=== PATIENT | male | born 1935 | race Caucasian/White ===

== ENCOUNTER 2020-10-06 10:06 | Emergency (ER) | payer OTHER, MEDICAID ==
[~2020-10-06] VITALS: Ht 162.6 cm; Wt 82.1 kg
[2020-10-06 10:13] VITALS: BP 180/80
--- NOTE | 2020-10-06 11:17 | NUR ---
PT AMBULATED TO BED 5 WITH FAMILY.
--- NOTE | 2020-10-06 11:20 | NUR ---
84 YO MALE BIBS C/O VIRY LOWER EXT SWELLING +NUMBNESS +DIZZINESS +FAINT AT TIMES (S/S X 1 MONTH). SWELLING TO VIRY FEET/ANKLES/LOWER LEGS 2+ PITTING EDEMA. SENSATION INTACT TO EXT. ACTIVE ROM. DENIES CHEST PAIN, SOB, BLURRED VISION, N/V/D. PT STATES HE LOSES HIS BALANCE AT TIMES AND FEELS FAINT BUT HAS NOT FALLEN. PT STATES HE BELIEVES THIS IS D/T HIS MEDICATIONS, HE DOES NOT TAKE BP MEDICATIONS ORDERED. VS BP 170/76 HR 66 RR 24 02 99%. PT IS A&OX4, RR EVEN AND UNLABORED, PT CONNECTED TO MONITOR, SIDE RAILS UP, BED IN LOWEST POSITON FOR SAFETY. NKDA PMH: HTN MEDS: ASPIRIN 81MG PO DAILY, AMLODOPINE 10MG PO DAILY, BENAZAPRIL 40MG PO DAILY, VITAMIN D2 1.25MG WEEKLY.
--- NOTE | 2020-10-06 11:28 | NUR ---
EMT AT BEDSIDE FOR EKG
--- NOTE | 2020-10-06 11:32 | NUR ---
BASKET MENDER AT BEDSIDE FOR BLOOD DRAW.
[2020-10-06 11:41] LABS: BASOPHILS % (AUTO) 0.7 % (0.0-2.0); EOSINOPHILS # (AUTO) 0.2 K/uL (0-0.4); EOSINOPHILS % (AUTO) 3.9 % (0.0-4.0); HEMATOCRIT 40.6 % (36-52); HEMOGLOBIN 13.7 g/dL (12.0-18.0); LYMPHOCYTES # (AUTO) 1.7 K/uL (2.0-11.5); LYMPHOCYTES % (AUTO) 32.6 % (20.5-51.1); MEAN CORPUSCULAR HEMOGLOBIN 33 pg (27-31); MEAN CORPUSCULAR HGB CONC 34 g/dL (33-37); MEAN CORPUSCULAR VOLUME 97.6 fL (80-94); MONOCYTES # (AUTO) 0.4 K/uL (0.8-1.0); MONOCYTES % (AUTO) 8.8 % (1.7-9.3); NEUTROPHILS # (AUTO) 2.7 K/uL (1.8-7.7); PLATELET COUNT (AUTO) 191 K/uL (140-450); RED BLOOD CELL COUNT(AUTO) 4.16 MIL/uL (4.20-6.10); RED CELL DISTRIBUTION WIDTH 13.7 % (11.6-13.7); WHITE BLOOD COUNT (AUTO) 5.1 K/uL (4.8-10.8)
--- NOTE | 2020-10-06 11:41 | NUR ---
PT TRANSPORTED TO [facility] VIA W/C.
--- NOTE | 2020-10-06 11:48 | NUR ---
PT RETURNED FROM XRAY VIA W/C.
[2020-10-06 11:54] LABS: ALBUMIN 3.9 g/dL (3.4-5.0); ANION GAP 11.6 (8-16); ASPARTATE AMINOTRANSFERASE 23 U/L (15-37); CARBON DIOXIDE 28.3 mmol/L (21-32); CHLORIDE 104 mmol/L (98-107); GLUCOSE 109 mg/dL (74-106); POTASSIUM 3.9 mmol/L (3.5-5.1); SODIUM SERUM 140 mmol/L (136-145); TOTAL BILIRUBIN 0.5 mg/dL (0.0-1.0); UREA NITROGEN, BLOOD 19 mg/dL (7-18)
--- NOTE | 2020-10-06 12:32 | NUR ---
DR CARLISLE AT BEDSIDE EVALUATING PT.
[2020-10-06] MEDS ORDERED: FURO-572 PO (13:00)
[2020-10-06 13:06] VITALS: BP 166/66
--- NOTE | 2020-10-06 13:06 | NUR ---
Patient discharged with v/s stable. Written and verbal after care instructions FOR EDEMA given and explained. Patient alert, oriented and verbalized understanding of instructions. Ambulatory with steady gait. All questions addressed prior to discharge. ID band removed. Patient advised to follow up with PMD. Rx of LASIX 20MG given. Patient educated on indication of medication including possible reaction and side effects. Opportunity to ask questions provided and answered.
== END 2020-10-06 13:06 | disposition home or self-care (01) ==
LOC: MED 10:06
DX: R60.9 Edema, unspecified (principal); I10 Essential (primary) hypertension; Z79.899 Other long term (current) drug therapy
CPT/HCPCS: 36415; 71045; 80053; 83880; 84484; 85025; 93005; 99285

== ENCOUNTER 2021-02-09 16:25 | Emergency (ER) | payer OTHER, MEDICAID ==
[~2021-02-09] VITALS: Ht 162.6 cm; Wt 79.4 kg
[~2021-02-09 16:25] MED LIST: FURO-572 PO
[2021-02-09 16:28] VITALS: BP 214/107
--- NOTE | 2021-02-09 16:37 | NUR ---
PATIENT AMBULATED TO BED 6.
--- NOTE | 2021-02-09 16:37 | NUR ---
Adrian lewis in [facility] - 02/09/21 at 1647 by [email or web address] PATIENT AMBULATED TO BED11.
--- NOTE | 2021-02-09 16:55 | NUR ---
85 y/o male BIB son for dizzy spells and high blood pressure at home (unknown). Pt AOX4, able to make needs known. No stroke symptoms noted. Denies N/V/D at this time. Denies CP/abd pain. No vision changes at this time. B/P 176/81 at this time. Denies DE LA O PmHx: HTN Home meds: Unknown, does not take them. Allergies: Denies
--- NOTE | 2021-02-09 17:41 | NUR ---
Blood drawn and walked down to lab by Pavel.
--- NOTE | 2021-02-09 17:42 | NUR ---
Dr Anderson at bedside to assess pt
[2021-02-09 18:00] LABS: BASOPHILS % (AUTO) 0.4 % (0.0-2.0); EOSINOPHILS # (AUTO) 0.1 K/uL (0-0.4); EOSINOPHILS % (AUTO) 0.8 % (0.0-4.0); HEMATOCRIT 43.6 % (36-52); HEMOGLOBIN 14.7 g/dL (12.0-18.0); LYMPHOCYTES # (AUTO) 1.2 K/uL (2.0-11.5); MEAN CORPUSCULAR HEMOGLOBIN 31 pg (27-31); MEAN CORPUSCULAR HGB CONC 34 g/dL (33-37); MEAN CORPUSCULAR VOLUME 92.9 fL (80-94); MONOCYTES # (AUTO) 0.9 K/uL (0.8-1.0); MONOCYTES % (AUTO) 9.8 % (1.7-9.3); NEUTROPHILS # (AUTO) 7.1 K/uL (1.8-7.7); PLATELET COUNT (AUTO) 187 K/uL (140-450); RED CELL DISTRIBUTION WIDTH 14.6 % (11.6-13.7); WHITE BLOOD COUNT (AUTO) 9.3 K/uL (4.8-10.8)
--- NOTE | 2021-02-09 18:24 | NUR ---
Urine collected and walked down to lab. Dip results shown to ERMD
[2021-02-09 18:28] LABS: ALBUMIN 3.8 g/dL (3.4-5.0); ANION GAP 14.5 (8-16); ASPARTATE AMINOTRANSFERASE 20 U/L (15-37); CARBON DIOXIDE 25.3 mmol/L (21-32); CHLORIDE 105 mmol/L (98-107); CREATININE 1.3 mg/dL (0.6-1.3); GLUCOSE 105 mg/dL (74-106); POTASSIUM 3.8 mmol/L (3.5-5.1); SODIUM SERUM 141 mmol/L (136-145); TOTAL BILIRUBIN 0.6 mg/dL (0.0-1.0); UREA NITROGEN, BLOOD 25 mg/dL (7-18)
--- NOTE | 2021-02-09 18:52 | NUR ---
Dr. Anderson obtained consent for CT with contrast. Consent has been signed.
[2021-02-09 18:56] LABS: BILIRUBIN,URINE NEGATIVE (NEGATIVE); BLOOD, URINE 2+ (NEGATIVE); LEUKOCYTE ESTERASE ,URINE NEGATIVE (NEGATIVE); NITRITE, URINE NEGATIVE (NEGATIVE); UGLUCOSE NEGATIVE (NEGATIVE)
[2021-02-09 18:59] LABS: APPEARANCE,URINE CLEAR (CLEAR); RBC,URINE 0-5 /HPF (0-5); WBC,URINE NONE SEEN /HPF (0-5)
[2021-02-09 19:00] LABS: COLOR,URINE STRAW (YELLOW)
[2021-02-09] MEDS: LIDOCAINE 5% 1 EA PATCH TP STA (19:07)
[2021-02-09 19:08] LABS: PROTHROMBIN TIME 10.7 secs (10.8-13.4)
[2021-02-09] MEDS: NACL 0.9% 1,000 ML IV ONE (19:08)
[2021-02-09] MEDS: ACETAMINOPHEN EXTRA STRENGTH 500 MG TAB PO ONE (19:09)
--- NOTE | 2021-02-09 19:10 | NUR ---
Patient appears to be resting comfortably in bed. VSS. Respirations even and unlabored. All needs met.
--- NOTE | 2021-02-09 19:14 | NUR ---
Called radiology, pt is ready for CT
--- NOTE | 2021-02-09 19:23 | NUR ---
Pt report given to Nina RN. Transfer of care at this time.
--- NOTE | 2021-02-09 19:23 | NUR ---
Received report from Ana ENNIS for continuity of care
--- NOTE | 2021-02-09 19:41 | NUR ---
PT RETURN FROM RADIOLOGY
--- NOTE | 2021-02-09 20:05 | NUR ---
Patient appears to be resting comfortably in bed- high fowlers, eyes open. Vital Signs within normal limits. Respirations even and unlabored. IV patent and able to flush 10cc through. Safety measures in place, attached to laboratory monitor and will continue to monitor patient.
[2021-02-09] MEDS ORDERED: ACET-10509 PO (22:46)
[2021-02-09] MEDS ORDERED: LID5T TP (22:46)
--- NOTE | 2021-02-09 22:58 | NUR ---
IV removed, catheter intact and site benign. Applied folded 4x4 gauze and tape to stop bleeding.
--- NOTE | 2021-02-09 23:03 | NUR ---
Patient discharged with v/s stable. Written and verbal after care instructions given and explained. Patient alert, oriented and verbalized understanding of instructions. Ambulatory with steady gait. All questions addressed prior to discharge. ID band removed. Patient advised to follow up with PMD. Rx of acetaminophen and lidoderm 5% patch given. Patient educated on indication of medication including possible reaction and side effects. Opportunity to ask questions provided and answered.
[2021-02-09 23:04] VITALS: BP 188/95
== END 2021-02-09 23:03 | disposition home or self-care (01) ==
LOC: MED 16:25
DX: S16.1XXA Strain of muscle, fascia and tendon at neck level, initial encounter (principal); I10 Essential (primary) hypertension; Z79.899 Other long term (current) drug therapy; X58.XXXA Exposure to other specified factors, initial encounter; Y92.89 Other specified places as the place of occurrence of the external cause; Y93.89 Activity, other specified; Y99.8 Other external cause status
CPT/HCPCS: 36415; 70450; 70496; 70498; 80053; 81001; 82553; 84484; 85025; 85610; 85730; 93005; 99285; J7030